=== PATIENT | female | born 1970 | race African-American/Black ===

== ENCOUNTER 2018-06-20 17:42 | Inpatient (IN) | payer MEDICAID ==
[~2018-06-20] VITALS: Ht 162.6 cm; Wt 49.0 kg
[~2018-06-20 17:42] MED LIST: baclofen; norco
[2018-06-20 19:00] LABS: Basophils # (auto) 0.1 uL; Basophils % (auto) 1.1 % (0.0-2.0); Eosinophils # (auto) 0 uL; Eosinophils % (auto) 0.5 % (0.0-7.0); Hematocrit 42.9 % (36.0-46.0); Hemoglobin 14.6 g/dL (12.2-16.2); Lymphocytes % (auto) 37.9 % (10.0-50.0); Mean Corpuscular Hemoglobin 31.8 pg (28.0-32.0); Mean Corpuscular Hgb Conc. 34.1 g/dL (32.0-36.0); Mean Corpuscular Volume 93.1 fL (80.0-100.0); Monocytes # (auto) 0.4 uL; Monocytes % (auto) 7.5 % (0.0-12.0); Neutrophils # (auto) 2.8 uL; Platelet Count (auto) 363 10^3/uL (140-450); Red Blood Cells 4.61 10^6/uL (4.0-5.20); Red Cell Distribution Width 13.4 % (11.8-14.3); White Blood Cell 5.2 10^3/uL (4.4-10.8)
[2018-06-20 19:15] LABS: Albumin 4.9 g/dL (3.4-5.0); BUN/Creatinine Ratio 16.5; Calcium 9.9 mg/dL (8.5-10.1)
[2018-06-20 19:18] LABS: Bilirubin, Total 0.4 mg/dL (0.2-1.0)
[2018-06-20 19:23] LABS: Potassium 2.7 mmol/L (3.5-5.1)
[2018-06-20] MEDS ORDERED: POTASSIUM CHL 20 Meq TABLET PO ONE (19:30)
[2018-06-20] MEDS ORDERED: LORazepam 2MG/ML-1ML VIAL IV ONE (20:15)
[2018-06-20] MEDS ORDERED: LABETALOL HCL 5 MG/ML ML 20ML VIAL IV ONE (20:15)
[2018-06-20] MEDS ORDERED: LEVETIRACETAM INJ 1,000 MG in D5W 5% 100 ML IV ONE (20:15)
[2018-06-20] MEDS: POTASSIUM CHL 20MEQ/100ML 100 ML IV SCH (20:26)
[2018-06-20 20:32] LABS: Urine Bacteria FEW /hpf (None Seen); Urine Blood 1+ /uL (Negative); Urine Hyaline Cast MANY /lpf (0 - 2); Urine Mucus FEW (None Seen); Urine Specific Gravity 1.016 (1.001-1.035); Urine WBC 4 /hpf (0 - 5)
[2018-06-20 20:54] LABS: Alcohol, Urine < 3.0 mg/dL (0-5); Amphetamine Screen, Urine NEGATIVE (NEGATIVE); Barbiturate Scree,Urine NEGATIVE (NEGATIVE); Cannabinoid Screen, Urine POSITIVE (NEGATIVE); Cocaine Screen, Urine NEGATIVE (NEGATIVE); Opiate Scree,Urine NEGATIVE (NEGATIVE); Phencyclidine Screen, Urine NEGATIVE (NEGATIVE)
[2018-06-20 20:58] LABS: Benzodiazephine Screen, Urine POSITIVE (NEGATIVE)
[2018-06-20] MEDS ORDERED: ONDANSETRON HCL 4 MG/2 ML VIAL IV PRN (21:00)
[2018-06-20] MEDS ORDERED: TEMAZEPAM 15 MG CAP PO PRN (21:00)
[2018-06-20] MEDS ORDERED: ACETAMINOPHEN 325 MG TAB PO PRN (21:00)
[2018-06-20] MEDS ORDERED: cloNIDine HCL 0.1 MG TAB PO PRN (21:00)
[2018-06-20] MEDS ORDERED: LORazepam 2MG/ML-1ML VIAL IV PRN (21:00)
[2018-06-20] MEDS ORDERED: LEVETIRACETAM 500 MG/5ML INJ IV ONE (21:52)
[2018-06-20 22:30] VITALS: BP 154/115
[2018-06-21] MEDS: FAMOTIDINE 20 MG TAB PO SCH ×3 (00:22→22:32)
[2018-06-21] MEDS: POTASSIUM CHL 20MEQ/100ML 100 ML IV SCH (00:23)
[2018-06-21] MEDS ORDERED: CITA10TA59 PO (02:24)
[2018-06-21] MEDS ORDERED: ATOR10TA PO (02:24)
[2018-06-21] MEDS ORDERED: NIFE30TA76 PO (02:24)
[2018-06-21] MEDS ORDERED: LORazepam 0.5 MG TAB PO ONE (05:30)
[2018-06-21 07:15] LABS: Basophils # (auto) 0.1 uL; Basophils % (auto) 1.1 % (0.0-2.0); Eosinophils # (auto) 0.1 uL; Eosinophils % (auto) 1.2 % (0.0-7.0); Hemoglobin 12.7 g/dL (12.2-16.2); Lymphocytes # (auto) 2.4 uL; Lymphocytes % (auto) 43.5 % (10.0-50.0); Mean Corpuscular Hemoglobin 32.1 pg (28.0-32.0); Mean Corpuscular Hgb Conc. 34.3 g/dL (32.0-36.0); Mean Corpuscular Volume 93.6 fL (80.0-100.0); Monocytes # (auto) 0.4 uL; Monocytes % (auto) 6.5 % (0.0-12.0); Neutrophils # (auto) 2.6 uL; Neutrophils % (auto) 47.7 % (37.0-80.0); Nucleated Red Blood Cells % 0.1 %; Platelet Count (auto) 313 10^3/uL (140-450); Red Blood Cells 3.95 10^6/uL (4.0-5.20); Red Cell Distribution Width 13.5 % (11.8-14.3); White Blood Cell 5.5 10^3/uL (4.4-10.8)
[2018-06-21 07:47] LABS: Albumin 3.8 g/dL (3.4-5.0); BUN/Creatinine Ratio 17.5; Bilirubin, Total 0.5 mg/dL (0.2-1.0); Calcium 9.2 mg/dL (8.5-10.1); Total Protein 7.4 g/dL (6.4-8.2)
[2018-06-21 09:00] VITALS: BP 142/94
[2018-06-21] MEDS: NIFEdipine ER 30 MG TAB PO SCH (10:18)
[2018-06-21] MEDS: CITALOPRAM HYDROBR 20 MG TAB PO SCH (10:18)
[2018-06-21] MEDS: LORazepam 0.5 MG TAB PO PRN ×2 (10:19→22:32)
[2018-06-21 13:00] VITALS: BP 126/100
[2018-06-21 15:34] VITALS: BP 137/90
[2018-06-21 17:00] VITALS: BP 131/96
[2018-06-21] MEDS ORDERED: LORazepam 2MG/ML-1ML VIAL IV PRN (18:30)
[2018-06-21] MEDS: HYDROcodone-ACET 5/325MG TAB PO PRN (18:44)
[2018-06-21 22:00] VITALS: BP 149/101
[2018-06-22] MEDS: HYDROcodone-ACET 5/325MG TAB PO PRN ×3 (00:35→12:54)
[2018-06-22 05:15] VITALS: BP 134/84
[2018-06-22 06:45] LABS: Hematocrit 36.7 % (36.0-46.0); Hemoglobin 12.7 g/dL (12.2-16.2); Mean Corpuscular Hemoglobin 32.4 pg (28.0-32.0); Mean Corpuscular Hgb Conc. 34.6 g/dL (32.0-36.0); Mean Corpuscular Volume 93.6 fL (80.0-100.0); Platelet Count (auto) 301 10^3/uL (140-450); Red Blood Cells 3.92 10^6/uL (4.0-5.20); Red Cell Distribution Width 13.5 % (11.8-14.3)
[2018-06-22 07:01] LABS: Band Neutrophils % (manual) 0; Basophils % (manual) 0 (0.0-2.0); Blast Cells 0; Metamyelocytes % 0; Myelocytes % 0; Promyelocytes % 0
[2018-06-22 08:10] LABS: BUN/Creatinine Ratio 19.3; Calcium 9.2 mg/dL (8.5-10.1); Potassium 3.5 mmol/L (3.5-5.1)
[2018-06-22 09:00] VITALS: BP 130/95
[2018-06-22] MEDS: NIFEdipine ER 30 MG TAB PO SCH (09:17)
[2018-06-22] MEDS: FAMOTIDINE 20 MG TAB PO SCH (09:18)
[2018-06-22] MEDS: CITALOPRAM HYDROBR 20 MG TAB PO SCH (09:18)
[2018-06-22 11:16] LABS: Eosinophils % (manual) 3 (0-7); Lymphocytes % (manual) 67 (10.0-50.0); Monocytes % (manual) 5 (0-12); Reactive Lymphocytes 3
[2018-06-22 13:26] VITALS: BP 144/95
[2018-06-22 17:03] VITALS: BP 132/75
== END 2018-06-22 18:24 | disposition home or self-care (01) | DRG 53 ==
LOC: ER 17:42 → OVERFLOW 17:43 → WEST WING 22:05
PROVIDERS: ADMIT Nurse Practitioner; ATTEND Internal Medicine
DX: R56.9 Unspecified convulsions (principal); E78.5 Hyperlipidemia, unspecified; E87.6 Hypokalemia; I10 Essential (primary) hypertension; F12.90 Cannabis use, unspecified, uncomplicated; F41.9 Anxiety disorder, unspecified; Z79.899 Other long term (current) drug therapy; Z81.8 Family history of other mental and behavioral disorders; Z82.49 Family history of ischemic heart disease and other diseases of the circulatory system; Z82.5 Family history of asthma and other chronic lower respiratory diseases; Z90.49 Acquired absence of other specified parts of digestive tract
CPT/HCPCS: 36415; 70450; 70551; 80048; 80053; 80307; 80320; 81001; 85007; 85025; 85027; 93005; 95819; 96374; J3480; J7060

== ENCOUNTER 2022-12-30 08:57 | Emergency (ER) | payer MEDICAID, OTHER ==
[~2022-12-30] VITALS: Ht 162.6 cm; Wt 51.5 kg
[~2022-12-30 08:57] MED LIST changes: +ATOR10TA PO; +CITA10TA8 PO; +NIFE1TAB31 PO; -baclofen; -norco
[2022-12-30 09:40] LABS: Urine Bacteria FEW /hpf (None Seen); Urine Blood 1+ /uL (Negative); Urine Specific Gravity 1.007 (1.001-1.035); Urine WBC 2 /hpf (0 - 5)
[2022-12-30 10:02] LABS: Hematocrit 41.3 % (36.0-46.0); Hemoglobin 14.3 g/dL (12.2-16.2); Mean Corpuscular Hemoglobin 30.9 pg (28.0-32.0); Mean Corpuscular Hgb Conc. 34.6 g/dL (32.0-36.0); Mean Corpuscular Volume 89.3 fL (80.0-100.0); Red Blood Cells 4.62 10^6/uL (4.0-5.20); Red Cell Distribution Width 14.3 % (11.8-14.3); White Blood Cell 4.7 10^3/uL (4.4-10.8)
[2022-12-30 10:05] LABS: Basophils % (manual) 0 (0.0-2.0); Blast Cells 0; Eosinophils % (manual) 0 (0-7); Metamyelocytes % 0; Myelocytes % 0; Promyelocytes % 0; Reactive Lymphocytes 0
[2022-12-30 10:17] LABS: Albumin 4.2 g/dL (3.4-5.0); BUN/Creatinine Ratio 10.5 (10.0-20.0); Bilirubin, Total 0.5 mg/dL (0.2-1.0); Calcium 9.7 mg/dL (8.5-10.1); Total Protein 8.1 g/dL (6.4-8.2)
[2022-12-30 10:34] LABS: Potassium 2.5 mmol/L (3.5-5.1)
[2022-12-30] MEDS ORDERED: POTASSIUM EFFERVESENT TAB 25 MEQ PO ONE (10:45)
[2022-12-30 11:30] LABS: Band Neutrophils % (manual) 2; Lymphocytes % (manual) 48 (10.0-50.0); Monocytes % (manual) 3 (0-12)
[2022-12-30 13:14] VITALS: BP 159/83
== END 2022-12-30 13:20 | disposition home or self-care (01) ==
LOC: ER 08:57
DX: E87.6 Hypokalemia (principal); I10 Essential (primary) hypertension; R42 Dizziness and giddiness; F12.10 Cannabis abuse, uncomplicated; E78.5 Hyperlipidemia, unspecified; Z90.49 Acquired absence of other specified parts of digestive tract
CPT/HCPCS: 36415; 70450; 80053; 81001; 85007; 85027; 93005